=== PATIENT | male | born 1960 | race Caucasian/White ===

== ENCOUNTER 2018-09-11 07:13 | Inpatient (IN) | payer OTHER ==
[~2018-09-11] VITALS: Ht 177.8 cm; Wt 100.8 kg
[~2018-09-11 07:13] MED LIST: AEROECLIPSE II1 EACH INH; ALBU3IS INH; ALBU90OI INH; ALBU90OI61 INH; AMIL5 PO; Aldactone100 MG PO; Aldactone50 MG PO; Aspirin EC325 MG PO; BENZ100A PO; CALCIUM + VITA1 EAC1 PO; CALCIUM PHOSPH PO; CODGUAEL PO; COMBIVENT RESPIM4 GM INH; CORGARD40 MG PO; Desyrel50 MG PO; Enulose 2020 G/30 ML PO; FOLI1 PO; FURO20 PO; FURO40; Hair, Skin & N1 EACH PO; IBUP400 PO; K-Dur10 MEQ PO; K-Dur20 MEQ PO; K-Tab10 MEQ PO; LACT10SY PO; LASIX PO; LEVFLO500 PO; LEVO750 PO; LISI20 PO; LORA1 PO; Lasix20 MG PO; MAG OXIDE PO; MAGOXI400 PO; METO50ER PO; MULTI VITAMIN1 EACH PO; MULTIVITAMIN; MULVITMIND PO; Magnesium500 M1 PO; Multiple Vitam1 EAC1; NADO20 PO; NADOLOL; NADOLOL 20 MG; NAPR500 PO; Neurontin 100100 MG PO; OMEP20ER PO; OMEP40CA12 PO; OXYC5 PO; PANT40 PO; PRED20 PO; PREDNISONE; Prednisone20 MG PO; QUET100 PO; QUET25 PO; ROBAXIN; ROXICODONE5 MG PO; Roxicodone5 MG PO; SPIR25 PO; SPIR50 PO; TEMA7.5 PO; THIA100 PO; TRAM50 PO; Zofran Odt4 MG SL; Zofran4 MG PO
[2018-09-11] MEDS ORDERED: Metformin HCl500 MG PO (07:38)
[2018-09-11 09:15] LABS: Hematocrit 35.1 % (37.0-53.0); Hemoglobin 13.1 g/dL (13.5-17.5); Mean Corpuscular HGB 35.4 pg (26.0-34.0); Mean Corpuscular HGB Conc 37.3 g/dL (31.5-36.5); Mean Corpuscular Volume 95 fL (80-100); Mean Platelet Volume 12.7 fL (9.1-12.4); NRBC ABSOLUTE 0.07 K/mm3 (0.00-0.02); NRBC Auto 0.6 /100 WBC (0.0-0.2); Platelet Count 76 K/mm3 (150-400); RDW Standard Deviation 56.2 fL (35.1-46.3); White Blood Cell Count 11.31 K/mm3 (4.00-11.30)
[2018-09-11 09:32] LABS: Anion Gap 13 mmol/L (6-16); Blood Urea Nitrogen 7 mg/dL (8-24); Bun/Creatinine Ratio 11.8 (12.0-20.0); CO2, Blood 22 mmol/L (21-32); Calcium, Blood 8.3 mg/dL (8.5-10.1); Chloride, Blood 86 mmol/L (98-108); Glomerular Filtration Rate >60 (60-); Glucose, Blood 107 mg/dL (70-99); Potassium, Blood 3.6 mmol/L (3.5-5.5); Sodium, Blood 121 mmol/L (136-145)
[2018-09-11 09:35] LABS: BAND PERCENT MAN 5 % (0-8); BASOPHILS PERCENT MAN 0 % (0-2); EOSINOPHILS PERCENT MAN 0 % (0-6); LYMPHOCYTES ABSOLUTE MAN 0.11 K/mm3 (0.84-5.20); LYMPHOCYTES PERCENT MAN 1 % (21-46); MONOCYTES ABSOLUTE MAN 0.33 K/mm3 (0.16-1.47); MONOCYTES PERCENT MAN 3 % (4-13); NEUTROPHILS ABSOLUTE MAN 10.85 K/mm3 (1.96-9.15); SEG NEUTROPHILS PERCENT MAN 91 % (41-73); TOTAL CELLS COUNTED 100
[2018-09-11 10:36] LABS: Albumin/Globulin Ratio 0.6 (0.8-1.8); Globulin, Blood 3.5 g/dL (2.2-4.0); Total Protein, Blood 5.5 g/dL (6.4-8.2)
[2018-09-11 10:46] LABS: Bilirubin, Indirect 5.1 mg/dL (0.1-0.7); Bilirubin, Total 23.1 mg/dL (0.1-1.0)
[2018-09-11] MEDS ORDERED: **INCOMPLETE MED REC (11:58)
[2018-09-11] MEDS ORDERED: Ventolin/Prove6.7 GM INH (12:24)
[2018-09-11] MEDS ORDERED: QVAR REDIHALE10.6 G1 INH (12:25)
[2018-09-11 12:46] LABS: U Amphetamine Screen Not Detected; U Barbituate Screen Not Detected; U Benzodiazapine Screen Not Detected; U Buprenorphine Screen Not Detected; U Cannabinoids Screen Not Detected; U Cocaine Screen Not Detected; U Methadone Screen Not Detected; U Methamphetamine Screen Not Detected; U Opiates Screen Not Detected; U Oxycodone Screen DETECTED; U Phencyclidine Screen Not Detected; U Propoxyphene Screen Not Detected
[2018-09-11] MEDS ORDERED: METF500C PO (15:28)
[2018-09-11] MEDS ORDERED: SPIR50 PO (15:28)
[2018-09-11] MEDS ORDERED: NADO20 PO (15:29)
[2018-09-11] MEDS ORDERED: FURO20 PO (15:29)
--- NOTE | 2018-09-11 15:31 | NUR ---
NURSING PCU DAYSHIFT: Assumed care of pt at approx 1510. Arrived from ER via [facility] to unit bed using slider sheet. Skin is fragile w/several scattered bruises and jaundiced, no significant breakdown noted. C/O 7/10 pain of BLE and increased weakness. Tele in place, afib w/HR 130's, no c/o CP/pressure, BP stable, trace general edema. L/S fairly cta t/o, denies dyspnea, O2 sat mid 90's on RA, occ moist cough producing clear/frothy sputum. Abd large though pt states this is normal, BT+, voiding w/o difficulty per pt though dark/tea colored urine reported from ER. PIV x2, NS infusing at 100cc/hr. Pt oriented to unit and call system. Denies any current needs or questions regarding plan of care. Admission ordered reviewed. Call light in reach, cont to monitor for any changes.
--- NOTE | 2018-09-11 16:49 | NUR ---
NURSING PCU DAYSHIFT SUMMARY: No acute changes noted since arrival to unit. Call light in reach and pt has been able to use w/o difficulty. Pt denies any current question/needs. Resting fairly comfortably wrapped in blankets from the warmer. No s/s of acute distress, cont to monitor until rpt is given to NOC RN.
[2018-09-11 18:14] LABS: International Normalized Ratio 2.75; Prothrombin Time Results 26.6 Sec (9.7-11.5)
--- NOTE | 2018-09-11 19:05 | NUR ---
RECEIVED REPORT FROM GALDINO PAULSON AND ASSUMED CARE OF PATIENT. PT HAS 125 ML/HR NS, NO PAIN AT THIS TIME. JAUNDICE THROUGHOUT AND SEVERE ADBOMINAL DISTENTION.
--- NOTE | 2018-09-11 19:20 | NUR ---
ASSUMED CARE BEDSIDE REPORT RECIEVED. PT IS LAYING IN BED RESTING QUIETLY. PT AWAKENS TO VERBAL STIMULI AND IS LETHARGIC/DROWSEY, BUT IS ALERT AND ORIENTED. PT ANSWERS QUESTIONS APPROPRIATELY. PT DENIES PAIN AT THIS TIME. HR IN AFIB 110-130'S, SBP 70-80'S AFTER RECIEVING LOPRESSOR IV FOR HR CONTROL. BP TRENDING UP. PT ON ROOM AIR. PT APPEARS JAUNDICED AND ABDOMEN DISTENDED. PT WITH NS INFUSING AT 125 ML/HR. PT WITH ATTENDS IN PLACE. WILL CONTINUE TO MONITOR.
--- NOTE | 2018-09-11 22:32 | NUR ---
DR BEAU YANEZ HERE TO SEE PT. DISCUSSED PLAN OF CARE. PT COMPLAINING OF PAIN IN BLE. DR YANEZ TO PUT IN ORDERS. WILL CONTINUE TO MONITOR.
[2018-09-12 03:08] LABS: BASOPHILS ABSOLUTE AUTO 0.03 K/mm3 (0.00-0.23); BASOPHILS PERCENT AUTO 0 % (0-2); EOSINOPHILS ABSOLUTE AUTO 0.02 K/mm3 (0.00-0.68); EOSINOPHILS PERCENT AUTO 0 % (0-6); Hematocrit 34.7 % (37.0-53.0); Hemoglobin 12.4 g/dL (13.5-17.5); IMMATURE GRAN ABSOLUTE AUTO 0.05 K/mm3 (0.00-0.10); IMMATURE GRAN PERCENT AUTO 1 % (0-1); LYMPHOCYTES ABSOLUTE AUTO 0.64 K/mm3 (0.84-5.20); LYMPHOCYTES PERCENT AUTO 7 % (21-46); MONOCYTES ABSOLUTE AUTO 0.52 K/mm3 (0.16-1.47); MONOCYTES PERCENT AUTO 6 % (4-13); Mean Corpuscular HGB Conc 35.7 g/dL (31.5-36.5); Mean Platelet Volume 12.8 fL (9.1-12.4); NEUTROPHILS ABSOLUTE AUTO 7.36 K/mm3 (1.96-9.15); NEUTROPHILS PERCENT AUTO 86 % (41-73); NRBC ABSOLUTE 0.08 K/mm3 (0.00-0.02); NRBC Auto 0.9 /100 WBC (0.0-0.2); Platelet Count 64 K/mm3 (150-400); RDW Coefficient Variation 16.6 % (11.7-14.2); Red Blood Cell Count 3.54 M/mm3 (4.30-5.90); White Blood Cell Count 8.62 K/mm3 (4.00-11.30)
[2018-09-12 03:12] LABS: Mean Corpuscular Volume 98 fL (80-100)
[2018-09-12 03:20] LABS: International Normalized Ratio 2.77; Prothrombin Time Results 26.8 Sec (9.7-11.5)
[2018-09-12 03:28] LABS: Alanine Aminotransfer (ALT/SGP 126 U/L (12-78); Albumin, Blood 1.9 g/dL (3.4-5.0); Albumin/Globulin Ratio 0.6 (0.8-1.8); Alk Phos 219 U/L (50-136); Anion Gap 9 mmol/L (6-16); Aspartate Aminotrans (AST/SGOT 223 U/L (12-37); Blood Urea Nitrogen 9 mg/dL (8-24); Bun/Creatinine Ratio 13.6 (12.0-20.0); CO2, Blood 26 mmol/L (21-32); Calcium, Blood 8.1 mg/dL (8.5-10.1); Chloride, Blood 88 mmol/L (98-108); Creatinine, Blood 0.66 mg/dL (0.60-1.20); Globulin, Blood 3.3 g/dL (2.2-4.0); Glomerular Filtration Rate >60 (60-); Glucose, Blood 110 mg/dL (70-99); Potassium, Blood 3.4 mmol/L (3.5-5.5); Sodium, Blood 123 mmol/L (136-145); Total Protein, Blood 5.2 g/dL (6.4-8.2)
[2018-09-12 03:55] LABS: Bilirubin, Total 26.1 mg/dL (0.1-1.0)
--- NOTE | 2018-09-12 05:59 | NUR ---
SHIFT SUMMARY NO ACUTE CHANGES. PT HAS TOSSED AND TURNED FROM SIDE TO SIDE THROUGHOUT THE NIGHT. PT NOW RESTING QUIETLY AT THIS TIME. PT IS ALERT AND ORIENTED, BUT REMAINS LETHARGIC AND IS CONFUSED AT TIMES. VITAL SIGNS HAVE REMAINED STABLE. PT REMAINS ON ROOM AIR. CLINIMIX INFUSING AT 100 ML/HR. PT REMAINS JAUNDICED THROUGHOUT. PT WITH SMALL BM'S THIS SHIFT. PT REMAINS INCONTINENT. CONDOM CATH PLACED, DARK JONATHAN URINE OUTPUT NOTED. NO NOTABLE WITHDRAWAL SYMPTOMS THIS SHIFT. WILL CONTINUE TO MONITOR AND REPORT OFF TO ONCOMING RN.
--- NOTE | 2018-09-12 07:23 | NUR ---
PT CALLED OUT FROM HIS ROOM. PT AWAKE AND SOMEWHAT CONFUSED. HANDS/ARMS W TREMOR. PT ORIENTED TO SELF BUT NOT TO YEAR, PLACE, SITUATION. PT GIVEN SMALL SIP OF WATER IN WHICH HE ASPIRATED ON SIGNIFICANTLY. WILL KEEP NPO AND MEDICATE PER CIWA.
--- NOTE | 2018-09-12 09:10 | NUR ---
DR MON IN TO SEE PT. IF CIWA CONT TO RISE WILL CONSIDER PRECEDEX GTT. ECHO COMPLETE WELL ABD U/S. PT'S SISTER CALLED; SHE WILL ARRIVE FROM OUT OF STATE TOMORROW.
--- NOTE | 2018-09-12 09:44 | NUR ---
ECHOCARDIOGRAM COMPLETE
--- NOTE | 2018-09-12 13:46 | NUR ---
PT HAS CIWA OF 12. HEART RATE 120-150 AFIB. ATIVAN 2MG IVP GIVEN. FLEXISEAL RECTAL TUBE PLACED FOR LACTULOSE ENEMA; PT TOLERATED FAIRLY WELL. PT VERY CONFUSED, MUMBLES INCOMPREHENSIBLE WORDS.
--- NOTE | 2018-09-12 15:00 | NUR ---
PT REMAINS CONFUSED WITH CIWA 12. PT GIVEN BEDBATH, MUMBLES OBSCENITIES T/O BATH. PT VERY JAUNDICED T/O. AGITATED WITH ANY STIMULATION. RECTAL TUBE INTACT W/O LEAKING. CONDOM CATH REPLACED. 325CC VERY DARK TEA COLOR URINE EMPTIED. NYSTATIN POWDER PLACED TO GROIN; GROIN BRIGHT RED. PT FELL RIGHT BACK TO SLEEP SOON BATH COMPLETED.
--- NOTE | 2018-09-12 19:30 | NUR ---
ASSUMED CARE BEDSIDE REPORT RECIEVED. PT IS LAYING IN BED, INCONTINENT OF URINE AND STOOL. PT CLEANED, LINENS CHANGED. PT IS LETHARGIC, BUT MOANS OUT TO VERBAL STIMULI. PT UNABLE TO FOLLOW COMMANDS. TREMORS NOTED. VITAL SIGNS STABLE, PT IN AFIB 110-140'S. PT JAUNDICED. RECTAL TUBE IN PLACE, LACTULOSE ENEMA GIVEN PER ORDERS. CONDOM CATH APPLIED, PT VOIDING DARK COLA COLORED URINE. CLINIMIX INFUSING AT 100 ML/HR AND NS TKO [facility] PERIPHERAL IV'S. WILL CONTINUE TO MONITOR.
--- NOTE | 2018-09-13 01:05 | NUR ---
DR YANEZ/PROTOZOOLOGIST [place] YANEZ IN TO SEE PT MULTIPLE TIMES THIS SHIFT. PT CONTINUES TO BECOME MORE OBTUNDED. PT IS MINIMALLY RESPONSIVE AT THIS TIME. PT TAKEN FOR STAT HEAD CT. PT RETURNED TO ROOM AT THIS TIME. PT HAS ALSO HAD INCREASE IN HR TO 140-160'S AFIB. ORDERS RECIEVED FOR NS FLUID BOLUS. PT WITH MINIMAL RESPONSE TO FLUID BOLUS. 2M IV LOPRESSOR GIVEN WITH GOOD EFFECT TO HR, DECREASED TO 110-130'S AT THIS TIME. PT WITH WET SOUNDING COUGH, PT DEEP ORAL SUCTIONED WITH LARGE AMOUNT OF THICK BRIGHT BLOODY SPUTUM RETURNED. DR YANEZ NOTIFIED AT THIS TIME. WILL CONTINUE TO MONITOR.
--- NOTE | 2018-09-13 01:42 | NUR ---
CALL TO NEXT OF KIN ABOUT CODE STATUS CALLED PT'S SISTER KRYSTYNA, WHO IS NEXT OF KIN TO UPDATE ABOUT PT WORSENING CONDITION. DR YANEZ HAD LENGTHY DISCUSSION WITH KRYSTYNA ON THE PHONE ABOUT PROGNOSIS AND CODE STATUS. DECISION HAS BEEN MADE TO MAKE PT A DNR/DNI AT THIS TIME. DR YANEZ TO PUT IN NEW CODE STATUS ORDERS. KRYSTYNA PLANS TO FLY UP SEE PT SOON POSSIBLE.
[2018-09-13 03:54] LABS: BASOPHILS ABSOLUTE AUTO 0.04 K/mm3 (0.00-0.23); BASOPHILS PERCENT AUTO 0 % (0-2); EOSINOPHILS ABSOLUTE AUTO 0.01 K/mm3 (0.00-0.68); EOSINOPHILS PERCENT AUTO 0 % (0-6); Hematocrit 39.1 % (37.0-53.0); Hemoglobin 13.9 g/dL (13.5-17.5); IMMATURE GRAN ABSOLUTE AUTO 0.21 K/mm3 (0.00-0.10); IMMATURE GRAN PERCENT AUTO 2 % (0-1); LYMPHOCYTES ABSOLUTE AUTO 0.74 K/mm3 (0.84-5.20); LYMPHOCYTES PERCENT AUTO 7 % (21-46); MONOCYTES ABSOLUTE AUTO 1.08 K/mm3 (0.16-1.47); MONOCYTES PERCENT AUTO 9 % (4-13); Mean Corpuscular HGB 35.3 pg (26.0-34.0); Mean Corpuscular HGB Conc 35.5 g/dL (31.5-36.5); Mean Corpuscular Volume 99 fL (80-100); NEUTROPHILS ABSOLUTE AUTO 9.36 K/mm3 (1.96-9.15); NEUTROPHILS PERCENT AUTO 82 % (41-73); NRBC ABSOLUTE 0.13 K/mm3 (0.00-0.02); NRBC Auto 1.1 /100 WBC (0.0-0.2); Platelet Count 77 K/mm3 (150-400); RDW Coefficient Variation 16.5 % (11.7-14.2); RDW Standard Deviation 59.9 fL (35.1-46.3); Red Blood Cell Count 3.94 M/mm3 (4.30-5.90); White Blood Cell Count 11.44 K/mm3 (4.00-11.30)
[2018-09-13 04:12] LABS: International Normalized Ratio 2.11; Prothrombin Time Results 20.9 Sec (9.7-11.5)
[2018-09-13 04:23] LABS: Anion Gap 9 mmol/L (6-16); Blood Urea Nitrogen 12 mg/dL (8-24); CO2, Blood 23 mmol/L (21-32); Calcium, Blood 8.3 mg/dL (8.5-10.1); Chloride, Blood 94 mmol/L (98-108); Glomerular Filtration Rate >60 (60-); Glucose, Blood 147 mg/dL (70-99); Potassium, Blood 3.4 mmol/L (3.5-5.5); Sodium, Blood 126 mmol/L (136-145)
--- NOTE | 2018-09-13 05:54 | NUR ---
SHIFT SUMMARY PT REMAINS UNCHANGED AT THIS TIME. PT CONTINUES TO BE OBTUNDED AND ONLY MOANS OUT OCCASIONALLY. PT UNABLE TO FOLLOW COMMANDS. PT REMAINS IN AFIB WITH RATE 110-140'S, BP HAS STABILIZED AFTER FLUID BOLUSES. PT ON 2L O2 NC. PT CONTINUES TO HAVE BLOODY ORAL SECRETIONS WITH DEEP SUCTIONING. PT WITH DIFFICULTY CLEARING AIRWAY WITH WEAK COUGH. PT REMAINS JAUNDICED WITH SOME MOTTLING NOTED TO LOWER EXTREMITIES. PT WITH CONDOM CATH IN PLACE, PT VOIDING DARK COLA COLORED URINE. RECTAL TUBE IN PLACE WITH LIQUID BROWN/YELLOW OUTPUT NOTED. CLINIMIX INFUSING AT 100 ML/HR, NS TKO. PT DNR STATUS AT THIS TIME. SEE PREVIOUS SHIFT NOTES FOR MORE INFO. WILL CONTINUE TO MONITOR AND REPORT OFF TO ONCOMING RN.
--- NOTE | 2018-09-13 08:00 | NUR ---
ASSUMED CARE ASSUMED CARE OF PT AT 0700. REPORT RECEIVED FROM GALDINO MIRANDA. PT IN BED, OBTUNDED. PT MOANS TO VOICE, ATTEMPTS TO OPEN EYES TO NAME, MOVING ALL EXTREMITIES SLIGHTLY BUT SPONTANEOUSLY. PT VERY JAUNDICED THROUGHOUT. MONITOR SHOWS A FIB, HR 120-160, SBP 90'S. MODERATE AMTS THICK BRIGHT RED BLOOD BEING SUCTIONED FROM ORAL CAVITY. LUNGS SOUNDS WHEEZY THROUGHOUT. SPO2 LOW 90'S. PT HAS CONNOR CATH IN PLACE DRAINING DARK ORANGE/BROWN URINE TO GRAVITY. PT HAS RECTAL TUBE IN PLACE FOR LACTULOSE ENEMAS WITH DARK BROWN LIQUID OUTPUT. PT HAS PIV X2 WITH CLINIMIX AT 100ML/HR. PT IS CURRENTLY DNR STATUS - AWAITING FAMILY ARRIVAL FROM [facility] TO ADDRESS FURTHER PLAN OF CARE.
[2018-09-13 09:47] LABS: Albumin, Blood 1.7 g/dL (3.4-5.0); Albumin/Globulin Ratio 0.5 (0.8-1.8); Globulin, Blood 3.2 g/dL (2.2-4.0); Total Protein, Blood 4.9 g/dL (6.4-8.2)
[2018-09-13 10:18] LABS: Bilirubin, Direct 19.1 mg/dL (0.0-0.3); Bilirubin, Total 23.1 mg/dL (0.1-1.0)
--- NOTE | 2018-09-13 10:30 | NUR ---
DR. YAA MON ROUNDED ON PT. DISCUSSED TACHYCARDIA - HE STATES HE IS OK WITH HR 160'S LONG BP MAINTAINS, DOES NOT WANT TO USE BETA BLOCKERS OR DIGOXIN TO TREAT AT THIS TIME. HE STATES PT PROGNOSIS IS VERY POOR. WILL CONTINUE WITH LACTULOSE ENEMAS AND HOLD OFF ON SEDATING MEDICATIONS IF ABLE/ CIWA ALLOWS. DISCUSSED WHEEZING - DUONEBS ORDERED & RT NOTIFIED. PALLIATIVE CARE CONSULT ORDERED.
--- NOTE | 2018-09-13 12:13 | NUR ---
RE-ASSESSMENT: PT CONTINUES TO BE OBTUNDED, THOUGH LESS RESPONSIVE THAN THIS MORNING. PT REQUIRES STERNAL RUB TO ATTEMPT TO RAISE EYELIDS. PT DOES CONTINUE TO MOVE ALL EXTREMITIES SPONTANEOUSLY, THOUGH DECREASED FREQUENCY AND STRENGTH. MONITOR CONTINUES TO SHOW RAPID A FIB, SBP 80-90'S. CONDOM CATH CONTINUES TO DRAIN COLA/ORANGE COLORED URINE. AWAITING SISTER FROM [facility]. WILL CONTINUE TO MONITOR PT CLOSELY.
--- NOTE | 2018-09-13 16:01 | NUR ---
PT'S SISTER AND HER HAVE ARRIVED FROM [facility] AND ARE REQUESTING COMFORT CARE MEASURES AT THIS TIME. CALL TO DR MON - ORDERS RECEIVED FOR COMFORT CARE. PALLIATIVE CARE RN EVANGELIST TO BEDSIDE AT THIS TIME.
--- NOTE | 2018-09-13 17:03 | NUR ---
Spiritual care visit conducted. I was called in by nursing supervisor plate forming, Robert. Patient recently was put on comfort care and patient's sister, Filomena and her Hemal requested a prayer for patient from a box finisher. After conducting a life review, encouraging self-care to the family, speaking to the patient about who I am and the purpose for my visit, I provided prayer. Family was moved to tears during the prayer but expressed gratitude for the time and the prayer.
--- NOTE | 2018-09-13 18:01 | NUR ---
SHIFT SUMMARY PT TRANSITIONED TO COMFORT MEASURES THIS AFTERNOON. PT REMAINS OBTUNDED, VERY DIFFICULT TO AROUSE. PT APPEARS TO BE WORKING TO BREATHE - MED WITH ROXANOL AND ATIVAN PER EMAR. PT'S SISTER AND BROTHER IN LAW AT BEDSIDE. PALLIATIVE CARE AND DR MON BOTH SPOKE WITH FAMILY, ADDRESSED ALL QUESTIONS/CONCERNS. CONDOM CATH AND RECTAL TUBE REMAIN IN PLACE AT THIS TIME FOR HYGIENE. PIV X2 SL. WILL CONTINUE TO MONITOR PT AND GIVE HANDOFF REPORT TO ONCOMING RN WHEN AVAILABLE.
--- NOTE | 2018-09-13 19:50 | NUR ---
PT PASSED AT 1940. DR. EDUARDO AND PT'S SISTER KRYSTYNA NOTIFIED AND WHO IS ON HER WAY TO HOSPITAL CURRENTLY.
--- NOTE | 2018-09-13 20:33 | NUR ---
called to see pt for family assistnce with comfort care. I have met with family on previous admits. they came form [place]. pt placed on comfort and . chaplian called to meet with family prior. met with sister after to paln care for funneral and pts house. gave her information on saving tan nd will send her infor on clean up and agemcoes available to help with sale of home
--- NOTE | 2018-09-13 22:00 | NUR ---
START OF SHIFT: REPORT FROM ZARI AHMADI. PT WITH AGONAL RR AT THAT TIME AND NON-RESPONSIVE. SKIN JAUNDICED AND COOL TO THE TOUCH. FAMILY NOT IN ROOM AT THAT TIME. PT PASSED AT 1940. FAMILY NOTIFIED AND CAME TO BEDSIDE. BUILDING ENERGY CONSULTANT LENNOX IN TO SEE FAMILY AT THAT TIME.
== END 2018-09-13 19:40 | DRG 432 ==
LOC: ER 07:13 → ICUW 11:32 → PCU 11:32 → ICUW 18:26
PROVIDERS: Emergency Medicine; Hospitalist; Internal Medicine Gastroenterology; ADMIT Family Medicine
DX: K70.40 Alcoholic hepatic failure without coma (principal); G92 Toxic encephalopathy; F10.231 Alcohol dependence with withdrawal delirium; Z66 Do not resuscitate; Z51.5 Encounter for palliative care; E87.1 Hypo-osmolality and hyponatremia; I85.00 Esophageal varices without bleeding; I50.32 Chronic diastolic (congestive) heart failure; E72.20 Disorder of urea cycle metabolism, unspecified; I48.91 Unspecified atrial fibrillation; K70.30 Alcoholic cirrhosis of liver without ascites; D69.6 Thrombocytopenia, unspecified; E11.9 Type 2 diabetes mellitus without complications; I11.0 Hypertensive heart disease with heart failure; E11.42 Type 2 diabetes mellitus with diabetic polyneuropathy; F17.210 Nicotine dependence, cigarettes, uncomplicated; E66.9 Obesity, unspecified; K70.10 Alcoholic hepatitis without ascites; I95.9 Hypotension, unspecified; Z68.28 Body mass index [BMI] 28.0-28.9, adult
CPT/HCPCS: 36415; 70450; 71046; 76705; 80048; 80053; 80076; 82105; 82140; 83735; 85025; 85610; 87040; 87077; 87086; 87186; 93005; 93010; 93306; 93976; 94640; 96360; 96361; 99285-25; C9113; G0480; J2060; J2543; J7030; J7040; J7050